=== PATIENT | female | born 1970 | race Caucasian/White ===

== ENCOUNTER 2017-05-18 16:10 | Emergency (ER) | payer BC ==
[~2017-05-18] VITALS: Ht 157.5 cm; Wt 81.6 kg
== END 2017-05-18 20:10 | disposition home or self-care (01) ==
LOC: ER 16:10
DX: J40 Bronchitis, not specified as acute or chronic (principal); Z98.51 Tubal ligation status; Z90.49 Acquired absence of other specified parts of digestive tract